=== PATIENT | female | born 1985 | race Caucasian/White ===

== ENCOUNTER 2019-11-15 13:14 | Outpatient (CLI) | payer OTHER ==
[2019-11-16 12:27] LABS: SARS-CoV-2 MS2 Positive; SARS-CoV-2 N Gene Negative; SARS-CoV-2 S Gene Negative; SARS-CoV-2 by NAA Not Detected (NotDetected); SARS-CoV-2 orf1ab Negative
== END 2019-11-15 13:15 | disposition home or self-care (01) ==
LOC: LABSCS 13:14
PROVIDERS: ATTEND Obstetrics & Gynecology
DX: Z20.828 Contact with and (suspected) exposure to other viral communicable diseases (principal)
CPT/HCPCS: 87635; U0003

== ENCOUNTER 2019-11-20 05:30 | Inpatient (IN) | payer OTHER ==
[2019-11-20] MEDS ORDERED: HYDROcodone/Acetaminophen 5/325 mg Tablet PO PRN ×4 (06:06→16:05)
[2019-11-20] MEDS ORDERED: Butorphanol Tartrate 1 MG/ML VIAL SLOW IVP PRN (06:06)
[2019-11-20] MEDS ORDERED: Promethazine HCl 25 MG/ML VIAL IM PRN (06:06)
[2019-11-20] MEDS ORDERED: NS w/ Oxytocin 10 units 500 ML IV SCH ×2 (06:06)
[2019-11-20] MEDS ORDERED: hydrALAZINE 20 MG/ML VIAL SLOW IVP PRN ×2 (06:06→16:05)
[2019-11-20] MEDS ORDERED: Ibuprofen 800 MG TAB PO PRN (06:06)
[2019-11-20] MEDS ORDERED: Lidocaine 1% (PF) 30 ML VIAL SC PRN (06:06)
[2019-11-20] MEDS ORDERED: Ondansetron PF 4 MG/2 ML Vial IVP PRN ×2 (06:06→16:05)
[2019-11-20] MEDS: Lactated Ringer's 1,000 ML IV SCH ×2 (06:12→23:43)
[2019-11-20 06:13] VITALS: BMI 33.7
[2019-11-20] MEDS ORDERED: Penicillin G Potassium 5 MILL.UNITS in Sodium Chloride 0.9% 100 ML IVPB SCH (06:15)
[2019-11-20 06:28] LABS: Hemoglobin 11.5 g/dL (12.0-16.0); Mean Corpuscular HGB CONC 34.2 g/dL (32.0-36.0); Mean Corpuscular Hemoglobin 31.2 pg (27.0-31.0); Mean Corpuscular Volume 91.3 fL (78.0-98.0); Mean Platelet Volume 10.9 fL (7.4-10.4); Platelet Count 152 thou/uL (130-400); RBC Distribution Width 11.5 % (11.5-14.5); Red Blood Cell (RBC) Count 3.67 mill/uL (4.20-5.40)
[2019-11-20 07:06] LABS: HBSAg Index 0.13 S/CO (0-0.99); Hep B Surf Ag Non-Reactive S/CO (NonReactive); Syphilis Antibody Nonreactive (Nonreactive); Syphilis Antibody Index 0.03 S/CO (<1.00 Non-Reactive)
[2019-11-20] MEDS ORDERED: Metoclopramide HCl 10 MG/2 ML VIAL IVP PRN (08:17)
[2019-11-20] MEDS: Penicillin G 2.5 MILL.units 2.5 MILL.UNITS in Premix Bag 1 BAG IVPB SCH ×2 (10:04→23:43)
[2019-11-20] MEDS ORDERED: Fentanyl 4 mcg/Bup 0.1% Cadd 0 ML ONE (12:13)
--- NOTE | 2019-11-20 12:44 | PDOC.OPDEL ---
OB Operative/Delivery Note Delivery Dr/Surgeon: Juan Pre-Delivery Diagnosis: active labor Procedure/Post Delivery Dx: spontaneous vaginal delivery Anesthesia: none - Additional Findings/Plan Placenta delivered: spontaneous Repaired Obstetrical Laceration: 2nd degree Estimated blood loss: 150 cc, QBL pending Compilations/Other Findings: Rapid progress with of viable male over small MLE. Apgars pending. Placenta intact Nish. Dr. Purcell present to do repair. Post delivery plan: routine recovery
--- NOTE | 2019-11-20 12:45 | PDOC.EVN ---
Event Note - Event Note Event Note: Called from RN w precipitous delivery of infant. Arrived w placenta out and vigorous noted after delivery w Dr. Martinez. I scrubbed in to repair 2nd degree laceration. Fundus firm and QBL 125ml.
[2019-11-20] MEDS: NS / Oxytocin 40 units/1000ml 1,000 ML IV PRN ×2 (14:18→14:19)
[2019-11-20] MEDS ORDERED: Lanolin Ointment 7 GM TUBE TOP PRN (16:05)
[2019-11-20] MEDS ORDERED: Milk Of Magnesia 30 ML UDCUP PO PRN (16:05)
[2019-11-20] MEDS ORDERED: Bisacodyl 10 MG SUPP PR PRN (16:05)
[2019-11-20] MEDS ORDERED: NS / Oxytocin 40 units/1000ml 1,000 ML IV SCH (16:15)
[2019-11-20] MEDS: Ferrous Sulfate 325 MG TAB PO SCH (16:51)
[2019-11-20] MEDS: Docusate Calcium (SURFAK) 240 MG CAP PO SCH (21:14)
[2019-11-20] MEDS: Ibuprofen 800 MG TAB PO SCH (21:16)
[2019-11-21] MEDS: Ibuprofen 800 MG TAB PO SCH ×2 (05:52→14:35)
--- NOTE | 2019-11-21 08:51 | PDOC.PP ---
Post Progress Note Post Day #: 1 Subjective: doing well, no concerns, breast feeding, desires DC PO intake tolerated: yes Flatus: yes Ambulation: yes Vital Signs (12 hours) Temp Pulse Resp BP Pulse Ox 11/21/19 08:17 98.4 F 87 20 110/59 L 98 11/21/19 05:58 98.0 F 75 18 110/62 11/21/19 01:35 98.2 F 81 18 105/59 L Weight Weight 222 lb - Physical Examination General: NAD Respiratory: non-labored breathing Abdominal: no distention Fundus firm & at: below umb Neurological: no gross focal deficits Psychiatric: A&Ox3, normal affect Result Diagrams: 11/20/19 06:16 Additional Labs: Post Labs Blood Type O POSITIVE 11/20/19 06:16 Hep Bs Antigen Non-Reactive S/CO (NonReactive) 11/20/19 06:16 (1) Normal delivery at term Code(s): O80 - ENCOUNTER FOR FULL-TERM UNCOMPLICATED DELIVERY Status: Acute - Assessment/Plan PPD 1 doing well, plan for DC
[2019-11-21] MEDS ORDERED: Adacel (T-DAP) 0.5 ML SYRINGE IM ONE (09:00)
[2019-11-21] MEDS ORDERED: Prenatal Vitamin 1 TAB PO SCH (09:00)
[2019-11-21] MEDS: Ferrous Sulfate 325 MG TAB PO SCH (09:21)
[2019-11-21] MEDS: Docusate Calcium (SURFAK) 240 MG CAP PO SCH (09:21)
[2019-11-21 11:55] VITALS: BP 109/55; TEMP 98.5
== END 2019-11-21 16:30 | disposition home or self-care (01) | DRG 807 ==
LOC: L&D 05:40 → 3SW 15:24
PROVIDERS: ADMIT Obstetrics & Gynecology; ATTEND Obstetrics & Gynecology
PROC: 10E0XZZ Delivery of Products of Conception, External Approach (ICD-10-PCS; principal; 2019-11-20)
PROC: 0KQM0ZZ Repair Perineum Muscle, Open Approach (ICD-10-PCS; 2019-11-20)
DX: O62.3 Precipitate labor (principal); Z37.0 Single live birth; Z3A.39 39 weeks gestation of pregnancy; O70.1 Second degree perineal laceration during delivery
CPT/HCPCS: 36415; 85027; 86780; 86850; 86900; 86901; 87340; J2540; J2590; J2765; J3490